=== PATIENT | female | born 1935 | race Caucasian/White ===

== ENCOUNTER 2016-05-17 00:41 | Day surgery (SDC) | payer MEDICARE, OTHER ==
[~2016-05-17] VITALS: Ht 163.8 cm; Wt 46.0 kg
[2016-05-17] MEDS ORDERED: Propofol 10,000 mCg/mL 20 mL Inj ONE (00:42)
[2016-05-17] MEDS ORDERED: fentaNYL-PF 50 mCg/mL 2 mL Inj ONE (00:42)
[2016-05-17 12:40] VITALS: BP 124/71; PULSE 66; RESP 10; O2SAT 99
[2016-05-17 13:12] VITALS: BP 111/59; PULSE 80; RESP 15; O2SAT 98
[2016-05-17 13:15] LABS: BASOPHILS % (AUTO) 0.9 % (0-3); EOSINOPHILS % (AUTO) 1.5 % (0-5); MONOCYTES % (AUTO) 9.1 % (4-12); Mean Corpuscular Hemoglobin 31.5 pg (27.0-35.0); Mean Corpuscular Volume 95.6 fL (81-100); NEUTROPHILS % (AUTO) 57.9 % (40-74); Platelet Count 248 bil/L (150-400)
[2016-05-17] MEDS ORDERED: MELA5TAB14 PO (13:34)
[2016-05-17] MEDS ORDERED: AMOX500C2 PO (13:34)
[2016-05-17] MEDS ORDERED: ACET-171 PO (13:34)
[2016-05-17] MEDS ORDERED: DOCU-41 PO (13:34)
[2016-05-17] MEDS ORDERED: DILT30TA PO (13:34)
[2016-05-17] MEDS ORDERED: SIMV10TA4 PO (13:34)
[2016-05-17] MEDS ORDERED: IRON18TA PO (13:34)
[2016-05-17] MEDS ORDERED: WARF5TAB7 PO (13:34)
[2016-05-17] MEDS ORDERED: MULT-666 PO (13:34)
[2016-05-17] MEDS ORDERED: WARF2.5T82 PO (13:34)
[2016-05-17] MEDS ORDERED: OXYC-407 PO (13:34)
[2016-05-17] MEDS ORDERED: MILK500C PO (13:34)
[2016-05-17] MEDS ORDERED: TRAZ-115 PO (13:34)
[2016-05-17 13:37] LABS: INR 2.56 ratio
--- NOTE | 2016-05-17 13:49 | PCM.HPANE ---
Patient Data Date of Service: May 17, 2016 Surgeon Admitting Provider: Attending Provider:Dom Romero MD Primary Care Physician:Jazmyne Zepeda Other Provider:Catrachito Hess Anesthesia Reason for Visit Non-Rheumatic Mitral Valve Regurgitation, A-Fib Ht/WT & BMI Height (Feet): 5 Height (Inches): 4.50 Weight (Kilograms): 46.000 Body Mass Index 17.10 Diabetes History Hx Diabetes?: No Medications Blood Thinner: Coumadin Hypertension Medication: Yes Reported Medications Docusate Sodium (Colace)100 Mg [id number] Mg PO DAILY PRN For Constipation Ref 0 05/17/16 Iron 18 Mg [id number] Mg PO 05/17/16 Milk Thistle 500 Mg Capsule1,000 Mg PO 05/17/16 Acetaminophen 500 Mg [id number] Mg PO Q6H PRN For Fever 05/17/16 Multivitamin (Once Daily)1 Each Tablet3 Each PO 05/17/16 Melatonin 5 Mg Tablet5 Mg PO PRN For Insomnia 05/17/16 Amoxicillin 500 Mg Capsule1 Mg PO TID PRN before dentist Ref 0 05/17/16 Warfarin Sodium 5 Mg Tablet5 Mg PO 6 days a week 30 Days Ref 0 05/17/16 Warfarin Sodium 2.5 Mg Tablet2.5 Mg PO DAILY 30 Days Ref 0 05/17/16 Trazodone 50 Mg [id number] Mg PO HS AD Ref 0 05/17/16 Simvastatin 10 Mg [id number] Mg PO HS PRN For Cholesterol Ref 0 05/17/16 Oxycodone HCl/Acetaminophen 5-325 (Endocet 5-325)1 Each Tablet1 Tablet PO Q4H PRN For Pain 05/17/16 Diltiazem 30 Mg [id number] Mg PO TID 05/17/16 History History of ENT Problems?: Yes HEENT History: Positive for:: Cataracts (bilateral cataract removal) Sinus Problem (chronic congestion) Denies:: Dysphagia Glaucoma Hx of Heart Problems?: Yes Cardiovascular History: Positive for:: Irregular Heartbeat (atrial) Hx of Respiratory Problem?: Yes Hx Neurologic Problems?: Yes Neurological History: Positive for:: CVA Denies:: Dementia Dizziness Headaches Seizures Hx of GI Problems?: No Hx of Problems?: No Hx Musculoskeletal Problems?: Yes Musculoskeletal History: Positive for:: Back Injury (spinal stenosis) Joint Replacement (right hip replacement) Hx of Psycho/Social Problems?: No Hx Any Other Health Problems?: No History Blood Transfusions: Positive for:: Accept Blood Products? Denies:: Blood Transfuse Reaction Blood Transfusions Hx Alcohol Use: Yes (1-2 GLASSES OF WINE A DAY)Hx Substance Use: NoHave You Smoked inLast 12 mo: No Stop/Bang Treated for Sleep Apnea?: No Do You Have a CPAP Machine?: No S-Snoring: Do You Snore Loudly: No T-Tired: feel tired, fatigued: No O-Obsered: Observed not breath: No P-Blood Pressure: treated: No A- Age over 50: Yes N- Neck Large Circumference: No G- Gender Male: No [place] Risk Assessment: Low Risk, <3 Yes Risk Assessment Category Category 1A: Patient has history of documented sleep apnea, and HAS NOT received any narcotic, sedative or anesthesia administration during this stay. Category 1B: Patient has history of documented sleep apnea, and HAS received any narcotic , sedative or anesthesia administration during this stay Category 2: Patient has SUSPECTED Obstructive Sleep Apnea, and HAS received any narcotic , sedative or anesthesia administration during this stay. Category 3: Patient has SUSPECTED Obstructive Sleep Apnea and HAS NOT received narcotic, sedative or anesthesia administration during this stay. Category 4: Outpatient in Procedural Areas with known sleep apnea or who screen positive for High Risk via the STOP/BANG questionnaire. Exam Exam Vital Signs Vital Signs Date Time Temp Pulse Resp B/P Pulse Ox O2 Delivery O2 Flow Rate FiO2 05/17/16 13:12 36.6 80 15 111/59 98 Room Air 05/17/16 12:40 36.4 66 10 124/71 99 Nasal Cannula 3 General Appearance: Alert, Oriented X3 HEENT/AIRWAY: MP 1 Lungs: Clear to Auscultation Heart: Exam Unremarkable Meds/Labs/Diagnostics Labs Test 05/17/16 13:12 White Blood Count 7.5th/mm3 (3.8-10.1) Red Blood Count 4.13mil/mm3 (3.90-5.20) Hemoglobin 13.0g/dL (12.0-15.6) Hematocrit 39.5% (35.0-46.0) Mean Corpuscular Volume 95.6fL (81-100) Mean Corpuscular Hemoglobin 31.5pg (27.0-35.0) Mean Corpuscular Hemoglobin Concent 32.9% (32.0-37.0) Red Cell Distribution Width 12.2% (12.3-15.4) Platelet Count 248bil/L (150-400) Neutrophils (%) (Auto) 57.9% (40-74) Lymphocytes (%) (Auto) 30.5% (14-46) Monocytes (%) (Auto) 9.1% (4-12) Eosinophils (%) (Auto) 1.5% (0-5) Basophils (%) (Auto) 0.9% (0-3) Prothrombin Time 27.9sec (8.1-12.5) Prothromb Time International Ratio 2.56ratio Sodium Level 138mEq/L (134-144) Potassium Level 4.1mEq/L (3.5-5.2) Chloride Level 97mEq/L (97-108) Carbon Dioxide Level 24mmol/L (18-29) Blood Urea Nitrogen 23mg/dL (8-27) Creatinine 0.50mg/dL (0.57-1.00) Estimat Glomerular Filtration Rate 170mL/min (>59) Glucose Level 97mg/dL (60-99) Calcium Level 9.7mg/dL (8.5-10.1) Plan Impression Patient chart reviewed, patient interviewed and anesthestic plan with risks, benefits, and alternatives discussed, and informed consent obtained. ASA Physical Status: ASA2 Mod Systemic Disease Anesthetic Plan: GA Bene/Risks/Altern/Consents: Yes HP Complete Prior to Induction: Yes Rory Boss MD May 17, 2016 13:49
[2016-05-17 14:54] VITALS: BP 91/58; PULSE 68; RESP 19; O2SAT 98
[2016-05-17 15:10] VITALS: BP 92/55; PULSE 71; RESP 19; O2SAT 98
[2016-05-17 15:20] VITALS: BP 134/79; PULSE 67; RESP 19; O2SAT 98
[2016-05-17 15:30] VITALS: BP 106/72; PULSE 68; RESP 19; O2SAT 98
--- NOTE | 2016-05-17 15:40 | NUR ---
Discharge Pt discharged to home with family after stable recovery post MARY ANN/Cardioversion. Pt and family stated verbal understanding of discharge instructions regarding use of home medications, signs of worsening condition and follow up appointments. Pt and family left with personal belongings, discharge paperwork, IV dc'd intact at approximately 1540.
--- NOTE | 2016-05-17 16:11 | OUT PROC ---
[address] [address] PROCEDURE NOTE PATIENT: JOLYNN RAMIREZ : 1935 MR#: [id number] ADMIT: 05/17/2016 JOB ID: [id number] DATE OF PROCEDURE: 05/17/2016 PROCEDURE: Transesophageal echocardiography cardioversion. INDICATION: Atrial fibrillation with intermittent fast ventricular rate, moderate to severe mitral regurgitation. CONSENT: Informed consent was obtained from the patient after explaining benefits and the risks, which include, but not limited to, risk of bleeding, GI perforation, anesthesia-related complication, aspiration, asystole, stroke, , etc. The patient verbalizes understanding. All the questions were answered. BOAT GARNISHER: Dom Romero MD. SEDATION: Anesthesiologist gave sedation. DESCRIPTION OF PROCEDURE: The patient was brought to the [facility] in a stable condition. She was monitored constantly with blood pressure recording, EKG monitoring and pulse oximetry monitoring. Sedation was given by anesthesiologist. After adequate sedation, transesophageal echocardiogram was done as per standard protocol. There was no left atrial appendage clot. Hence, we decided to proceed with cardioversion. Prior to that, her electrolytes were checked, INR was checked. Her INR was therapeutic. Electrolytes did not reveal any significant abnormalities. Using a standard anterior and posterior pads, the patient received synchronized 200-joule biphasic shock x1, which was successful. AFib got converted to sinus rhythm. The patient tolerated the procedure. There was no immediate complications. CONCLUSION: Successful transesophageal echocardiography cardioversion. The patient is in sinus rhythm. RECOMMENDATIONS: Continue anticoagulation with therapeutic INR with goal of INR between 2 and 3. Follow up in the clinic as planned. JAVID
--- NOTE | 2016-05-17 16:59 | PCM.ANEP2 ---
Post Anesthesia Evaluation ASA/CMS Post Anesthesia VS in Patient's Normal Range?: Yes Resp Stable; Airway Patent?: Yes CV Function & Hydration Stable: Yes Mental Status Recovered?: Yes Pain control Satisfactory?: Yes N/V Control Satisfactory?: Yes Rory Boss MD May 17, 2016 16:59
--- NOTE | 2016-05-19 18:08 | DRSVH ---
[facility] [address] [place] [address] Echocardiogram Report Name: JOLYNN RAMIREZ RStudy Date : 05/17/2016 Height: 64 in Hospital Exam Location: [facility] Weight: 108 lb Gender: Female BSA: 1.5 m2 : 1935 Age: 81 yrs BP: 111/51 mmHg Reason For Study: Mitral Valve- Regurgitation Performed By: Yusef Chong Referring Physician: LEANNA JORGENSEN Interpretation Summary .No thrombus is detected in the left atrial appendage. No left atrial mass or thrombus visualized. Injection of contrast documented an interatrial shunt. The shunt was bidirectional. A patent foramen ovale is present (Maximum diameter is about 0.3 cm). There is mild to moderate mitral annular calcification. There is prolapse of the posterior mitral valve leaflet(s). There is borderline mitral valve prolapse. There is moderate mitral regurgitation (Central jet). BP 147/93 mmHg. No flow reversal noted in pulmonary veins. PISA radius: 0.45 cm. Left ventricle is not dilated. The left ventricle is normal in size. The ejection fraction is estimated to be 45-50%. There is mild global hypokinesis of the left ventricle. The patient was in atrial fibrillation with rapid ventricular response during the exam with a heart rate exceeding 100 bpm most of the time. Procedure: A 2D transesophageal echocardiogram with spectral and color flow Doppler was performed. Sedation was managed by anesthesiologist; see anesthesiology notes for details. An intravenous line was placed. A topical anesthetic agent was used for oropharangeal anesthesia. A bite block was inserted. The patient was brought to the [facility] in a fasting state. Contrast injection with agitated saline was performed. The transesophageal probe was passed without difficulty. The usual views were obtained; basal, mid- esophageal, transgastric and aortic views. The patient's vital signs, including blood pressure, heart rate, pulse oximetry and cardiac rhythm were monitored throughout the procedure and remained stable. The patient tolerated the procedure well without evidence of orophangeal or esophageal trauma. The heart rate ranged between 78-150 bpm during the study. The patient was in atrial fibrillation with rapid ventricular response during the exam with a heart rate exceeding 100 bpm. There were no complications. Left Ventricle: The left ventricle is normal in size. There is no thrombus. The ejection fraction is estimated to be 45-50%. There is mild global hypokinesis of the left ventricle. Right Ventricle: The right ventricle is grossly normal size. Right ventricular systolic function is mildly reduced. Atria: The left atrium is mildly dilated. No left atrial mass or thrombus visualized. No thrombus is detected in the left atrial appendage. Injection of contrast documented an interatrial shunt. The shunt was bidirectional. A patent foramen ovale is present. Mitral Valve: There is mild to moderate mitral annular calcification. The mitral valve leaflets are mildly calcified. The mitral valve leaflets appear mildly thickened, but open well. There is borderline mitral valve prolapse. There is prolapse of the posterior mitral valve leaflet(s). There is moderate mitral regurgitation. Flow reversal noted in pulmonary veins consistent with significant mitral regurgitation. Aortic Valve: The aortic valve is trileaflet. The aortic valve opens well. 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 There is mild aortic regurgitation. Tricuspid Valve: The tricuspid valve is normal. Pulmonic Valve: The pulmonic valve leaflets are thin and pliable; valve motion is normal. Doppler Measurements & Calculations MR ERO: 0.10 cm MR PISA radius: 0.45 cm Reading Physician:WAGNER
== END 2016-05-17 23:59 | disposition home or self-care (01) ==
LOC: SOUO 00:41
PROVIDERS: ATTEND Internal Medicine Cardiovascular Disease
DX: I48.1 Persistent atrial fibrillation (principal); I34.0 Nonrheumatic mitral (valve) insufficiency; I34.1 Nonrheumatic mitral (valve) prolapse; Q21.1 Atrial septal defect; I48.91 Unspecified atrial fibrillation; Z79.01 Long term (current) use of anticoagulants; E78.00 Pure hypercholesterolemia, unspecified; Z87.891 Personal history of nicotine dependence; Z79.899 Other long term (current) drug therapy